=== PATIENT | female | born 1985 | race Asian ===

== ENCOUNTER 2018-08-05 04:44 | Inpatient (IN) | payer OTHER ==
[2018-08-05] MEDS ORDERED: TERBUTALINE SULF 1 MG/1ML SQ ONE ×2 (05:21→08:21)
[2018-08-05] MEDS ORDERED: Ringers Lactate 1,000 ML IV SCH ×2 (05:30→06:00)
[2018-08-05] MEDS ORDERED: Ringers Lactate 1,000 ML IV ONE (05:32)
[2018-08-05] MEDS ORDERED: BETAMET ACET/BETAMET NA PH 6 MG/ML VIAL IM ONE ×2 (06:00→06:15)
[2018-08-05] MEDS ORDERED: BETAMET ACET/BETAMET NA PH 6 MG/ML VIAL IM SCH ×2 (07:00→08:00)
[2018-08-05 08:01] VITALS: BMI 3711.8
--- NOTE | 2018-08-05 08:34 | RAD REPORT ---
EXAM DESCRIPTION: US - OB Complete - 08/05/2018 7:05 am CLINICAL HISTORY: vaginal bleeding, history of placenta previa age. COMPARISON: No comparisons FINDINGS: A single breech presenting gestation is identified. Heart rate normal. The intracranial contents and spine are grossly normal. A normal stomach bubble is noted. A nor mal fluid-filled urinary bladder seen without pelviectasis. Umbilical cord was not well assesse d due to position. Four-chamber view the heart was suboptimal due to age. Estimated weight 5 pounds 8 ounces +/-13 ounces. measurements are as follows: BPD:8.8 Centimeters 35 weeks 5 days HC:31.6 Centimeters 35 weeks 4 days AC:30.8 Centimeters 34 weeks 6 days HL:5.7 Centimeters 33 weeks 0 days FL:6.6 Centimeters 33 weeks 6 days The estimated gestational age (EGA) is 34 weeks 4 days with an SOPHIE of09/12/2018. The placenta is grade 1, posterior in location. Complete placenta previa noted. The amniotic fluid index is 10.4 cm, with largest pocket 3.9 cm. The maternal adnexa show no worrisome findings. IMPRESSION: 1. Single, breech gestation with an EGA of 34 weeks 4 days and an SOPHIE of the 09/12/2018. 2. Complete placenta previa is present. 3. Grade 1, posterior placenta. 4. Amniotic fluid index is10.4 cm, with largest pocket3.9 cm -- considered within normal limits.
[2018-08-05 08:50] LABS: Absolute Lymphocytes (CBC) 0.9 K/uL (0.7-4.9); Absolute Monocytes 0.3 K/uL (0.1-1.3); Basophils % 0.3 % (0-1.3); Eosinophils % 0.1 % (0-4.4); Hematocrit 32.8 % (36.0-45.0); Monocytes % 3.1 % (3.3-12.3); RBC Red Blood Cell Count 4.06 M/uL (3.86-4.86)
[2018-08-05 09:33] LABS: Blood Morphology Comment NOT SEEN (NOT SEEN); Urine White Blood Cell Casts OK
[2018-08-05 09:34] LABS: Platelet Estimate ADEQ
[2018-08-05] MEDS ORDERED: MAGNESIUM SULF/STERILE WATER 1,000 ML IV SCH (11:00)
--- NOTE | 2018-08-05 11:26 | PREOPHP ---
Date of Admission: 08/05/2018 History Of Present Illness: Ms. Garcia is a 32-year-old [place] female, 1, para 0, now at approximately 33 weeks gestation. She has been followed by a physician in [place] with known placenta previa as noted on approximately 18-20 week ultrasound. She has not had any other difficulties during this . She understands that she needs to be delivered by section later in the . She has not had any bleeding until approximately 3:30 this a.m. She went up to go to the restroom and noted bleeding and having some cramping. She presents to Labor and Delivery for evaluation where small amount of blood is noted on the perineum and undergarments. She had pictures of small clots she had passed. has been active. She notes the cramping after the bleeding. Past Medical History: Includes prior laparoscopy for bleeding issues and some sort of ovarian surgery, she is not clear. She has no other hospitalizations, accidents, illnesses, injuries. Medications: She is on no medications other than vitamin. Allergies: SHE LISTS NO KNOWN ALLERGIES. Family History: Noncontributory. Review of Systems: She reports no recent cough, cold, fever, or chills. No recent nausea or vomiting. She denies any breast lumps or knots. has been active. She denies any change in vaginal discharge other than new bleeding. She denies any urine symptoms. Physical Examination: General: Reveals a [place] female in no apparent distress. Neck: Supple without adenopathy or thyromegaly. Lungs: Clear. Cardiac: Regular rate and rhythm without murmurs. Breasts: Not examined. Abdomen: Consistent with 32-33 weeks gestation. Pelvic: Not performed. Extremities: No cyanosis, clubbing, or edema. Lab Work: Ultrasound confirms gestational age breech presentation with complete previa. Plan: The patient given Celestone Soluspan, will be hydrated, given 1 dose of terbutaline to cutdown uterine irritability. Natural history of placenta previa is discussed briefly. Need for delivery at 36-37 weeks is discussed, not at 39 weeks like she seems to be under the impression, her physician has told her. Expected plan is usually observation for 2-3 days, make sure there is no further bleeding, dismissal with precautions. The need for taking supplemental iron is discussed to have best blood count possible going forward with surgery and possible further bleeding episodes of discharge. LISA/ИВАН Voice ID: [id number]
== END 2018-08-05 19:05 | disposition short-term general hospital (02) | DRG 833 ==
LOC: L&D 04:44 → 2ND-WC 05:34
PROVIDERS: ADMIT Specialist; ATTEND Specialist
DX: O44.13 Complete placenta previa with hemorrhage, third trimester (principal); O32.1XX0 Maternal care for breech presentation, not applicable or unspecified; Z3A.33 33 weeks gestation of pregnancy
CPT/HCPCS: 36415; 76805; 83735; 85025; 86850; 86900; 86901; J3105; J3475